=== PATIENT | male | born 1985 | race Caucasian/White ===

== ENCOUNTER 2019-01-18 11:36 | Inpatient (IN) | payer OTHER ==
[2019-01-18 14:57] VITALS: BMI 24.7
--- NOTE | 2019-01-18 16:57 | HP ---
CIWA Score Nausea/Vomitin-No Nausea/No Vomiting Muscle Tremors: 4-Moderate,w/Arms Extend Anxiety: 1-Mildly Anxious Agitation: 0-Normal Activity Paroxysmal Sweats: No Perspiration Orientation: 1-Uncertain about Date Tacttile Disturbances: 0-None Auditory Disturbances: 0-None Visual Disturbances: 0-None Headache: 0-None Present CIWA-Ar Total Score: 6 - Admission Criteria OASAS Guidelines: Admission for Medically Managed Detox: Requires at least one of the followin. CIWA greater than 12 2. Seizures within the past 24 hours 3. Delirium tremens within the past 24 hours 4. Hallucinations within the past 24 hours 5. Acute intervention needed for co occurring medical disorder 6. Acute intervention needed for co occurring psychiatric disorder 7. Severe withdrawal that cannot be handled at a lower level of care (continued vomiting, continued diarrhea, abnormal vital signs) requiring intravenous medication and/or fluids 8. Admission ROS S - [facility] Allergies/Adverse Reactions: Allergies Allergy/AdvReac Type Severity Reaction Status Date / Time No Known Allergies Allergy Verified 01/18/19 14:50 History of Present Illness: Search Terms: keila shetty, 1985 Search Date: 01/18/2019 04:44:16 PM This report was requested by: Lisbeth Kincaid | Reference #: [id number] There are no results for the search terms that you entered. pt here requesting detox from etoh use , reports 3 x 6-pk /day since 1 mo ago , prior to which he was sober x 2 years , first age of use 11 , heavily since 17 , reports multiple prior detox most recently @ [facility] did not complete , latest use yesterday , current symptoms as above . Pt is poor historian , falls asleep frequently during interview, awakened by verbal stimuli , falls asleep before answering questions . cannabis : denies tobacco : 2 ppd cocaine : " a lot " 2.5 bags IVDU in UE , needles from exchange , + sharing heroin : admits to use , cannot quantify 2/2 intoxication . MMTP - does not recall name of program , states current daily dose 80 mg . met/amp - denies oxy - denies fen- denies PMHX / PSHX - unable to obtain 2/2 intoxication . - Ebola screening Have you traveled outside of the country in the last 21 days: No (N) Have you had contact with anyone from an Ebola affected area: No Do you have a fever: No - Review of Systems Constitutional: No Symptoms Reported EENT: reports: Other (glasses) Respiratory: reports: No Symptoms reported Cardiac: reports: No Symptoms Reported GI: reports: No Symptoms Reported : reports: No Symptoms Reported Musculoskeletal: reports: No Symptoms Reported Integumentary: reports: See HPI Neuro: reports: No Symptoms reported Endocrine: reports: No Symptoms Reported Psychiatric: reports: Depressed, Disorientated, other (drowsy , intoxicated) Patient History - Smoking Cessation Smoking history: Current every day smoker Have you smoked in the past 12 months: Yes Hx Chewing Tobacco Use: No Initiated information on smoking cessation: No - Substances abused Alcohol Substance route: Oral Frequency: Daily Amount used: Beer- 3x 6 packs Age of first use: 18 Date of last use: 01/17/19 Cocaine Substance route: Injection Heroin Substance route: Injection Family Disease History - Family Disease History Family History: Unable to Obtain (pt drowsy , falls asleep frequently during interview) Admission Physical Exam [facility] - Vital Signs Vital Signs: Vital Signs - 24 hr 01/18/19 14:51 Temperature 97 F L Pulse Rate 60 Respiratory 16 Rate Blood Pressure 126/80 - Physical General Appearance: Yes: Disheveled, Intoxicated HEENTM: Yes: Hearing grossly Normal, Normocephalic, Normal Voice Respiratory: Yes: Chest Non-Tender, Lungs Clear, Normal Breath Sounds, No Respiratory Distress, No Accessory Muscle Use Neck: Yes: No masses,lesions,Nodules, Trachea in good position Cardiology: Yes: Regular Rhythm, Regular Rate, S1, S2 Abdominal: Yes: Non Tender, Soft Back: Yes: Normal Inspection Musculoskeletal: Yes: Gait Steady Extremities: Yes: Normal Range of Motion, Non-Tender, Tremors Neurological: Yes: Motor Strength 5/5, Respond to painful stimul, Other (drowsy , intoxicated) - Diagnostic (1) Opioid dependence on agonist therapy Current Visit: Yes Status: Acute (2) Nicotine dependence Current Visit: Yes Status: Acute Qualifiers: Nicotine product type: cigarettes (3) Cocaine dependence Current Visit: Yes Status: Chronic Qualifiers: Substance use status: uncomplicated Qualified Code(s): F14.20 - Cocaine dependence, uncomplicated (4) Alcohol use disorder Current Visit: Yes Status: Chronic Inpatient Rehab Admission - Rehab Decision to Admit Inpatient rehab admission?: No
[2019-01-18] MEDS ORDERED: BISMUTH SUBSALICYLATE 524 MG/30 ML UD PO PRN (17:25)
[2019-01-18] MEDS ORDERED: NICOTINE POLACRILEX 2 MG GUM BUC PRN (17:25)
[2019-01-18] MEDS ORDERED: ACETAMINOPHEN 325 MG TABLET (FP) PO PRN ×2 (17:25)
[2019-01-18] MEDS ORDERED: IBUPROFEN 400 MG TABLET (FP) PO PRN (17:25)
[2019-01-18] MEDS ORDERED: MAGNESIUM HYDROX 2400MG/30ML ORAL SUSPENSION 30 ML CUP PO PRN (17:25)
[2019-01-18] MEDS ORDERED: MAG HYDROX/AL HYDROX/SIMETH 30 ML UNIT-DOSE CUP PO PRN (17:25)
[2019-01-18] MEDS ORDERED: hydrOXYzine PAMOATE 25 MG CAPSULE (FP) PO PRN (17:25)
[2019-01-18] MEDS ORDERED: MAGNESIUM CITRATE 300 ML BOTTLE PO PRN (17:25)
[2019-01-18] MEDS ORDERED: MENTHOL/PHENOL 1 EACH UD MM PRN (17:25)
[2019-01-18] MEDS ORDERED: diazePAM 5 MG TABLET PO PRN (17:27)
[2019-01-18] MEDS: BACITRACIN/POLYMYXIN B SULFATE 15 GM TUBE TP SCH (22:23)
[2019-01-18] MEDS: diazePAM 5 MG TABLET PO SCH (22:23)
[2019-01-18] MEDS: THIAMINE HCL 100 MG TABLET (FP) PO SCH (22:24)
[2019-01-18] MEDS: MELATONIN 5 MG TABLETS PO PRN (22:26)
[2019-01-19] MEDS: diazePAM 5 MG TABLET PO SCH ×3 (05:49→21:48)
[2019-01-19] MEDS: BACITRACIN/POLYMYXIN B SULFATE 15 GM TUBE TP SCH ×2 (10:37→21:49)
[2019-01-19] MEDS: METHADONE HCL 40 MG DISPERSABLE TABLET PO SCH (10:37)
[2019-01-19] MEDS: PRENATAL VITAMINS W/ FOLIC ACID TABLET (FP) PO SCH (10:37)
--- NOTE | 2019-01-19 11:38 | PN ---
[facility] CIWA - CIWA Score Nausea/Vomitin-Mild Nausea/No Vomiting Muscle Tremors: 4-Moderate,w/Arms Extend Anxiety: 3 Agitation: 3 Paroxysmal Sweats: 2 Orientation: 1-Uncertain about Date Tacttile Disturbances: 0-None Auditory Disturbances: 0-None Visual Disturbances: 0-None Headache: 0-None Present CIWA-Ar Total Score: 14 S Progress Note (SOAP) Subjective: 33 years old male 1st patient [facility] admission was admitted on 01/18/19 for alcohol withdrawal sx management tolerate valium detox regimen well but feeling restlessness and anxiety prefers to stay in bed resting today limited conversation with staff refused left antecubital to be examined Objective: 01/19/19 11:41 Vital Signs Temperature 96.1 F L 01/19/19 09:11 Pulse Rate 85 01/19/19 09:11 Respiratory Rate 18 01/19/19 09:11 Blood Pressure 129/75 01/19/19 09:11 O2 Sat by Pulse Oximetry (%) 01/19/19 11:45 lab pending Assessment: 01/19/19 11:45 alcohol withdrawal sx alert but closing his eyes periodically "I am tired" response to verbal command Plan: continue valium detox regimen methadone program 80 mg po daily
[2019-01-19 12:28] LABS: HEMATOCRIT 43.7 % (35.4-49); HEMOGLOBIN 14.4 GM/dL (11.7-16.9); MCH 29.1 pg (25.7-33.7); MEAN CELL VOLUME 88.1 fl (80-96); MEAN PLT VOLUME 8.7 fl (7.5-11.1); PLATELET COUNT 170 K/MM3 (134-434); RBC 4.96 M/mm3 (4.00-5.60); RDW 13.7 % (11.9-15.9); WHITE BLOOD COUNT 5.4 K/mm3 (4.0-10.0)
[2019-01-19 12:31] LABS: ALBUMIN 3.4 g/dl (3.4-5.0); BILIRUBIN,TOTAL 0.4 mg/dL (0.2-1); BLOOD UREA NITROGEN 15.4 mg/dL (7-18); CALCIUM 9.2 mg/dL (8.5-10.1); CREATININE 0.8 mg/dL (0.55-1.3); POTASSIUM 3.7 mmol/L (3.5-5.1); TOT PROT 6.5 g/dl (6.4-8.2)
[2019-01-19] MEDS: THIAMINE HCL 100 MG TABLET (FP) PO SCH (21:48)
[2019-01-19] MEDS: MELATONIN 5 MG TABLETS PO PRN (21:48)
[2019-01-20] MEDS: diazePAM 5 MG TABLET PO SCH ×2 (05:32→17:13)
[2019-01-20] MEDS: METHADONE HCL 40 MG DISPERSABLE TABLET PO SCH (05:32)
[2019-01-20] MEDS: PRENATAL VITAMINS W/ FOLIC ACID TABLET (FP) PO SCH (10:41)
[2019-01-20] MEDS: BACITRACIN/POLYMYXIN B SULFATE 15 GM TUBE TP SCH ×2 (10:41→21:25)
--- NOTE | 2019-01-20 16:33 | PN ---
[facility] CIWA - CIWA Score Nausea/Vomitin-No Nausea/No Vomiting Muscle Tremors: 3 Anxiety: 4-Mod. Anxious/Guarded Agitation: 3 Paroxysmal Sweats: No Perspiration Orientation: 2-Disoriented Date<2 days Tacttile Disturbances: 1-Very Mild Itch/Numbness Auditory Disturbances: 0-None Visual Disturbances: 2-Mild Sensitivity Headache: 0-None Present CIWA-Ar Total Score: 15 S Progress Note (SOAP) Subjective: Fatigue, Tremors, Anxious. Objective: PATIENT A & O X 2 (UNCERTAIN ABOUT CURRENT DAY / DATE). PATIENT OBSERVED AMBULATING ON UNIT UNASSISTED. IN NO ACUTE DISTRESS. 01/20/19 16:29 Vital Signs Temperature 98.5 F 01/20/19 13:46 Pulse Rate 71 01/20/19 13:46 Respiratory Rate 18 01/20/19 13:46 Blood Pressure 120/73 01/20/19 13:46 O2 Sat by Pulse Oximetry (%) Laboratory Tests 01/19/19 01/19/19 01/19/19 08:30 08:30 08:30 WBC 5.4 RBC 4.96 Hgb 14.4 Hct 43.7 MCV 88.1 MCH 29.1 MCHC 33.0 RDW 13.7 Plt Count 170 MPV 8.7 Sodium 144 Potassium 3.7 Chloride 109 H Carbon Dioxide 31 Anion Gap 4 L BUN 15.4 Creatinine 0.8 Est GFR (CKD-EPI)AfAm 137.96 Est GFR (CKD-EPI)NonAf 119.03 Random Glucose 88 Calcium 9.2 Total Bilirubin 0.4 AST 133 H ALT 244 H Alkaline Phosphatase 71 Total Protein 6.5 Albumin 3.4 RPR Titer Nonreactive LABS NOTED. RESULTS OF DETOX ADMISSION QFT /TB TEST PENDING. 01/20/19 16:31 Assessment: 01/20/19 16:31 WITHDRAWAL SYMPTOMS. ELEVATED AST LEVEL. ELEVATED ALT LEVEL. Plan: CONTINUE DETOX. INCREASE DAILY PO WATER INTAKE. PATIENT SCHEDULED FOR D/C FROM DETOX UNIT TOMORROW, PENDING MEDICAL EVALUATION IN AM TOMORROW (WITHDRAWAL SYMPTOMS RELATIVELY SEVERE ON TODAY'S AM MEDICAL ASSESSMENT).
[2019-01-20] MEDS: THIAMINE HCL 100 MG TABLET (FP) PO SCH (21:23)
[2019-01-20] MEDS: MELATONIN 5 MG TABLETS PO PRN (21:24)
[2019-01-21] MEDS: METHADONE HCL 40 MG DISPERSABLE TABLET PO SCH (05:54)
[2019-01-21] MEDS ORDERED: diazePAM 5 MG TABLET PO ONE (06:00)
[2019-01-21 09:12] VITALS: BP 122/78; PULSE 75; TEMP 98.9
[2019-01-21] MEDS: PRENATAL VITAMINS W/ FOLIC ACID TABLET (FP) PO SCH (10:32)
[2019-01-21] MEDS: BACITRACIN/POLYMYXIN B SULFATE 15 GM TUBE TP SCH (10:32)
--- NOTE | 2019-01-21 13:29 | DS ---
[facility] Detox Discharge Summary Admission Date: 01/18/19 Discharge Date: 01/21/19 - History Present History: Alcohol Dependence, Cocaine Dependence, Opioid Dependence, MMTP Additional Comments: PATIENT GOING TO [facility] ([facility]) FOR AFTERCARE. PATIENT WAS DISCHARGED FROM DETOX UNIT TO BE TAKEN OVER TO REHAB UNIT IN STABLE MEDICAL CONDITION. Pertinent Past History: Nicotine Dependence, M.M.T.P., Elevated AST Level, Elevated ALT Level. - Physical Exam Results Vital Signs: Vital Signs Temperature 98.9 F 01/21/19 09:11 Pulse Rate 75 01/21/19 09:11 Respiratory Rate 18 01/21/19 09:11 Blood Pressure 122/78 01/21/19 09:11 O2 Sat by Pulse Oximetry (%) Pertinent Admission Physical Exam Findings: WITHDRAWAL SYMPTOMS. Laboratory Tests 01/19/19 01/19/19 01/19/19 08:30 08:30 08:30 WBC 5.4 RBC 4.96 Hgb 14.4 Hct 43.7 MCV 88.1 MCH 29.1 MCHC 33.0 RDW 13.7 Plt Count 170 MPV 8.7 Sodium 144 Potassium 3.7 Chloride 109 H Carbon Dioxide 31 Anion Gap 4 L BUN 15.4 Creatinine 0.8 Est GFR (CKD-EPI)AfAm 137.96 Est GFR (CKD-EPI)NonAf 119.03 Random Glucose 88 Calcium 9.2 Total Bilirubin 0.4 AST 133 H ALT 244 H Alkaline Phosphatase 71 Total Protein 6.5 Albumin 3.4 RPR Titer Nonreactive LABS NOTED. - Treatment Hospital Course: Detox Protocol Followed, Detoxed Safely, Responded well, Discharged Condition Good, Rehab Referral Accepted Patient has Accepted a Rehab Referral to: [facility] ([place], [place]). - Medication Discharge Medications: Ambulatory Orders NK [No Known Home Medication] 01/18/19 - Diagnosis (1) Elevated alanine aminotransferase (ALT) level Current Visit: Yes Status: Acute (2) Elevated aspartate aminotransferase level Current Visit: Yes Status: Acute (3) Nicotine dependence Current Visit: Yes Status: Acute Qualifiers: Nicotine product type: cigarettes Substance use status: uncomplicated Qualified Code(s): F17.210 - Nicotine dependence, cigarettes, uncomplicated (4) Opioid dependence on agonist therapy Current Visit: Yes Status: Acute (5) Alcohol use disorder Current Visit: Yes Status: Chronic (6) Cocaine dependence Current Visit: Yes Status: Chronic Qualifiers: Substance use status: uncomplicated Qualified Code(s): F14.20 - Cocaine dependence, uncomplicated - AMA Did Patient Leave Against Medical Advice: No [facility] CIWA - CIWA Score Nausea/Vomitin-No Nausea/No Vomiting Muscle Tremors: None Anxiety: 3 Agitation: 0-Normal Activity Paroxysmal Sweats: No Perspiration Orientation: 0-Oriented Tacttile Disturbances: 1-Very Mild Itch/Numbness Auditory Disturbances: 0-None Visual Disturbances: 1-Very Mild Sensitivity Headache: 0-None Present CIWA-Ar Total Score: 5
== END 2019-01-21 13:24 | disposition other institution (70) | DRG 773 ==
LOC: YASAS 11:36 → Y3N 18:39
PROVIDERS: ADMIT Surgery; ATTEND Surgery
PROC: HZ2ZZZZ Detoxification Services for Substance Abuse Treatment (ICD-10-PCS; principal; 2019-01-18)
DX: F10.230 Alcohol dependence with withdrawal, uncomplicated (principal); F11.20 Opioid dependence, uncomplicated; F14.20 Cocaine dependence, uncomplicated; F17.210 Nicotine dependence, cigarettes, uncomplicated; R74.0 Nonspecific elevation of levels of transaminase and lactic acid dehydrogenase [LDH]
CPT/HCPCS: 36415; 80053; 85027; 86480; 86593

== ENCOUNTER 2019-01-21 13:28 | Inpatient (IN) | payer OTHER ==
[2019-01-21] MEDS ORDERED: LOPERAMIDE HCL 2 MG CAPSULE PO PRN (13:31)
[2019-01-21] MEDS ORDERED: NICOTINE POLACRILEX 2 MG GUM BUC PRN (13:31)
[2019-01-21] MEDS ORDERED: IBUPROFEN 400 MG TABLET (FP) PO PRN (13:31)
[2019-01-21] MEDS ORDERED: P-EPHED 60MG/TRIPROLIDI 2.5MG TABLET PO PRN (13:31)
[2019-01-21] MEDS ORDERED: MENTHOL/PHENOL 1 EACH UD MM PRN (13:31)
[2019-01-21] MEDS ORDERED: MAGNESIUM CITRATE 300 ML BOTTLE PO PRN (13:31)
[2019-01-21] MEDS ORDERED: MAGNESIUM HYDROX 2400MG/30ML ORAL SUSPENSION 30 ML CUP PO PRN (13:31)
[2019-01-21] MEDS ORDERED: guaiFENesin 200 MG/10 ML 10 ML UNIT-DOSE CUPS PO PRN (13:31)
--- NOTE | 2019-01-21 14:02 | HP ---
[facility]CHULE[facility] Rehab Assess/Revision - Admission History Admitted to Rehab from[facility] Date of Admission to Rehab: 01/21/2019 - Vital signs Vital Signs: NOTED; STABLE. - Findings Detox History & Physical reviewed: Yes Concur with findings: Yes Comments/Additional Findings: PATIENT'S MEDICAL / MEDICATION HISTORY REVIEWED PRIOR TO DISCHARGE FROM DETOX UNIT. PATIENT WAS DISCHARGED FROM DETOX UNIT TO BE TAKEN OVER TO REHAB UNIT IN STABLE MEDICAL CONDITION. RESULT OF DETOX ADMISSION QFT / TB TEST PENDING AT TIME OF DISCHARGE FROM DETOX UNIT, WILL BE NOTED ON REHAB UNIT ONCE RESULT IS AVAILABLE. Inpatient Rehab Admission - Rehab Decision to Admit Inpatient rehab admission?: Yes - Initial Determination Are CD services needed?: Yes Free of communicable disease: Yes Not in need of hospitalization: Yes - Rehab Admission Criteria Previous failed treatment: Yes Poor recovery environment: Yes Comorbidities: Yes Lacks judgement: Yes Patient is meeting Inpatient Rehab admission criteria:: Yes
[2019-01-21] MEDS: MAG HYDROX/AL HYDROX/SIMETH 30 ML UNIT-DOSE CUP PO PRN (15:29)
[2019-01-21] MEDS ORDERED: MELATONIN 5 MG TABLETS PO PRN (22:00)
[2019-01-21] MEDS ORDERED: THIAMINE HCL 100 MG TABLET (FP) PO SCH (22:00)
[2019-01-22] MEDS ORDERED: METHADONE HCL 40 MG DISPERSABLE TABLET PO SCH (06:00)
[2019-01-22 07:24] VITALS: BP 123/74; PULSE 71; TEMP 98.2
[2019-01-22] MEDS: MAG HYDROX/AL HYDROX/SIMETH 30 ML UNIT-DOSE CUP PO PRN (09:54)
[2019-01-22] MEDS ORDERED: PRENATAL VITAMINS W/ FOLIC ACID TABLET (FP) PO SCH (10:00)
[2019-01-22] MEDS ORDERED: BACITRACIN/POLYMYXIN B SULFATE 15 GM TUBE TP SCH (10:00)
--- NOTE | 2019-01-22 15:40 | PN ---
[facility] Progress Note Note: Rehab Discharge Summary Patient Name: LUIS GARCÍA Date of : 89 Patient Status: Inpatient Attending Provider: Lisbeth Kincaid Date: 01/22/19 15:37 Initialization Date: 01/22/19 15:37 Rehab Discharge Summary Admission Date: 01/21/19 Discharge Date: 01/22/19 - History Present History: Alcohol Dependence, Cannabis Dependence, Cocaine Dependence, Opioid Dependence Pertinent Past History: Denies - Physical Exam Results Vital Signs: Vital Signs Temperature 98.2 F 01/22/19 07:24 Pulse Rate 71 01/22/19 07:24 Respiratory Rate 18 01/22/19 07:24 Blood Pressure 123/74 01/22/19 07:24 O2 Sat by Pulse Oximetry (%) - Medication Discharge Medications: Ambulatory Orders NK [No Known Home Medication] 01/18/19 - Diagnosis (1) Nicotine dependence Current Visit: No Status: Acute Qualifiers: Nicotine product type: cigarettes Substance use status: uncomplicated Qualified Code(s): F17.210 - Nicotine dependence, cigarettes, uncomplicated (2) Opioid dependence on agonist therapy Current Visit: No Status: Acute (3) Alcohol use disorder Current Visit: No Status: Chronic Patient discharged AMA to go to another facility
== END 2019-01-22 15:48 | disposition left against medical advice (07) | DRG 770 ==
LOC: YASAS 13:28 → Y5N 13:29
PROVIDERS: ADMIT Neuromusculoskeletal Medicine & OMM; ATTEND Neuromusculoskeletal Medicine & OMM
PROC: HZ42ZZZ Group Counseling for Substance Abuse Treatment, Cognitive-Behavioral (ICD-10-PCS; principal; 2019-01-21)
DX: F10.20 Alcohol dependence, uncomplicated (principal); F11.20 Opioid dependence, uncomplicated; F14.20 Cocaine dependence, uncomplicated; F17.210 Nicotine dependence, cigarettes, uncomplicated

== ENCOUNTER 2019-02-12 08:26 | Inpatient (IN) | payer OTHER ==
[2019-02-12 08:50] VITALS: BMI 23.6
--- NOTE | 2019-02-12 09:56 | HP ---
CIWA Score Nausea/Vomitin Muscle Tremors: 3 Anxiety: 4-Mod. Anxious/Guarded Agitation: 2 Paroxysmal Sweats: 1-Minimal Palms Moist Orientation: 1-Uncertain about Date Tacttile Disturbances: 1-Very Mild Itch/Numbness Auditory Disturbances: 0-None Visual Disturbances: 0-None Headache: 2-Mild CIWA-Ar Total Score: 16 - Admission Criteria OASAS Guidelines: Admission for Medically Managed Detox: Requires at least one of the followin. CIWA greater than 12 2. Seizures within the past 24 hours 3. Delirium tremens within the past 24 hours 4. Hallucinations within the past 24 hours 5. Acute intervention needed for co occurring medical disorder 6. Acute intervention needed for co occurring psychiatric disorder 7. Severe withdrawal that cannot be handled at a lower level of care (continued vomiting, continued diarrhea, abnormal vital signs) requiring intravenous medication and/or fluids 8. Patient presents the following: CIWA greater than 12 Admission Criteria Met: Admission criteria met Admission ROS [facility] - HPI Chief Complaint: I know it's going to get worse, I know I need to stay and get help, I'm done, I' m just wasting my life Allergies/Adverse Reactions: Allergies Allergy/AdvReac Type Severity Reaction Status Date / Time No Known Allergies Allergy Verified 02/12/19 08:45 History of Present Illness: 33 yo gentleman here for detox from alcohol. Patient was previously here for detox 01/18-01/21 then sent to rehab here where he transferred to [facility] - however when he went there they had no beds so was on the streets - returned to using - did go back to his methadone program ([facility]) - he is not sure when but it was verified that he was medicated (80mg) on 02/05 and given one take-home for . Patient states he continued drinking and using cocaine by injection and then went to [facility] where he stayed for two days for detox but left again before completing treatment (he thinks 02/09-02/10) to 'get high' because his check was available. He then went to [place] [facility] yesterday to go back for treatment. He does have a history of alcohol related seizure, black outs and of note is very elevated transaminase levels on his admission here 01/18/19. He is homeless and having issues related to seeing his daughter due to his drug and alcohol use. Noted urine tox + bzo - states it is from detox at [facility] was given librium. He was given 80mg methadone at [facility] - this was verified by KAUSHAL Acosta who called [facility] - they dosed him on 02/10/19. Patient lost almost 10lbs since leaving here a month ago. Patient reports living in [place] for ten years - he was using pills and then heroin while in [place] as well as drinking and went on a methadone program in [place] about a year prior to coming here in May 2018 after his grandmother kicked him out for ongoing drug use. Exam Limitations: No Limitations - Ebola screening Have you traveled outside of the country in the last 21 days: No (N) Have you had contact with anyone from an Ebola affected area: No Do you have a fever: No - Review of Systems Constitutional: Chills, Loss of Appetite, Malaise, Changes in sleep, Weakness, Unintentional Wgt. Loss EENT: reports: Blurred Vision Respiratory: reports: No Symptoms reported Cardiac: reports: No Symptoms Reported GI: reports: Nausea, Poor Appetite, Abdominal cramping : reports: Frequency Musculoskeletal: reports: Back Pain, Joint Pain, Muscle Pain, Muscle Weakness Integumentary: reports: No Symptoms Reported Neuro: reports: Headache, Numbness, Tremors Endocrine: reports: No Symptoms Reported Hematology: reports: No Symptoms Reported Psychiatric: reports: Judgement Intact, Mood/Affect Appropiate, Anxious Other Systems: Reviewed and Negative Patient History - Patient Medical History Hx Asthma: No Hx Chronic Obstructive Pulmonary Disease (COPD): No Hx Cancer: No Hx Cardiac Disorders: No Hx Congestive Heart Failure: No Hx Hypertension: No Hx Hypercholesterolemia: No Hx Pacemaker: No Hx Seizures: Yes (alcohol related about 2017) Hx Diabetes: No Hx Gastrointestinal Disorders: Yes (GERD; history of cholecystitis) Hx Liver Disease: Yes (elevated LFTs due to alcohol) Hx Genitourinary Disorders: No Hx Sexually Transmitted Disorders: No Hx Renal Disease (ESRD): No Hx Thyroid Disease: No Hx Human Immunodeficiency Virus (HIV): No Hx Hepatitis C: No Hx Depression: Yes (no meds, never hospitalized) Hx Suicide Attempt: No Hx Bipolar Disorder: No Hx Schizophrenia: No - Patient Surgical History Past Surgical History: No Hx Neurologic Surgery: No Hx Cataract Extraction: No Hx Cardiac Surgery: No Hx Lung Surgery: No Hx Breast Surgery: No Hx Breast Biopsy: No Hx Abdominal Surgery: No Hx Appendectomy: No Hx Cholecystectomy: No Hx Genitourinary Surgery: No Hx Section: No Hx Orthopedic Surgery: No Anesthesia Reaction: No - PPD History Previous Implant?: Yes Documented Results: Negative w/o proof Implanted On Prior [facility] Admission?: Yes Results: quantiferon neg PPD to be Administered?: No - Reproductive History Patient is a Female of Child Bearing Age (11 -55 yrs old): No - Smoking Cessation Smoking history: Current every day smoker Have you smoked in the past 12 months: Yes Aproximately how many cigarettes per day: 20 Cigars Per Day: 0 Hx Chewing Tobacco Use: No Initiated information on smoking cessation: Yes 'Breaking Loose' booklet given: 02/12/19 (give on floor) - Substances abused Alcohol Substance route: Oral Frequency: Daily Amount used: Beer- 3x 6 packs, 1 pint lvodka Age of first use: 18 Date of last use: 02/11/19 Cocaine Substance route: Injection Frequency: Daily Amount used: 1 GRAM Age of first use: 20 Date of last use: 02/11/19 Heroin Substance route: Injection Frequency: 1-2 times per week Amount used: 6 bags Age of first use: 19 Date of last use: 02/11/19 Admission Physical Exam S - Vital Signs Vital Signs: Vital Signs - 24 hr 02/12/19 08:46 Temperature 97.9 F Pulse Rate 70 Respiratory 20 Rate Blood Pressure 115/71 - Physical General Appearance: Yes: Nourished, Appropriately Dressed, Moderate Distress, Tremorous, Anxious HEENTM: Yes: EOMI, Hearing grossly Normal, Normocephalic, Normal Voice, Pharynx Normal Respiratory: Yes: Normal Breath Sounds, No Respiratory Distress Neck: Yes: No masses,lesions,Nodules, Supple Breast: Yes: Breast Exam Deferred Cardiology: Yes: Regular Rhythm, Regular Rate Abdominal: Yes: Soft Genitourinary: Yes: Frequency Back: Yes: Normal Inspection Musculoskeletal: Yes: full range of Motion, Gait Steady, Back pain, Muscle Pain Extremities: Yes: Tremors, Pedal Edema (mild ankle edema) Neurological: Yes: Fully Oriented, Alert, Normal Mood/Affect, Normal Response, Numbness (sometimes fingers and toes get numb) Integumentary: Yes: Normal Color, Warm, Track Phillips (left antecubital fossa with tracks - no abscess - elevated purplish scarring noted) Lymphatic: Yes: Within Normal Limits - Diagnostic (1) Alcohol use disorder Current Visit: Yes Status: Chronic (2) Cocaine dependence Current Visit: Yes Status: Chronic Qualifiers: Substance use status: uncomplicated Qualified Code(s): F14.20 - Cocaine dependence, uncomplicated (3) Nicotine dependence Current Visit: Yes Status: Acute Qualifiers: Nicotine product type: cigarettes Substance use status: uncomplicated Qualified Code(s): F17.210 - Nicotine dependence, cigarettes, uncomplicated (4) Opioid dependence on agonist therapy Current Visit: Yes Status: Chronic Comment: [facility] methadone program (5) Elevated alanine aminotransferase (ALT) level Current Visit: Yes Status: Acute (6) Elevated aspartate aminotransferase level Current Visit: Yes Status: Acute (7) GERD (gastroesophageal reflux disease) Current Visit: Yes Status: Chronic Qualifiers: Esophagitis presence: without esophagitis Qualified Code(s): K21.9 - Gastro -esophageal reflux disease without esophagitis (8) History of seizure Current Visit: Yes Status: Chronic Cleared for Admission S - Detox or Rehab [facility] Level of Care: Medically Managed Detox Regimen/Protocol: Valium Breathalyzer - Breathalyzer Breathalyzer: 0 Urine Drug Screen - Test Device Lot number: [id number] Expiration date: 10/15/20 - Control Is test valid?: Yes - Results Drug screen NEGATIVE: Yes Urine drug screen results: EDGARDO-Cocaine, FEN-Fentanyl, MOP-Opiates, MTD-Methadone , BZO-Benzodiazepines Inpatient Rehab Admission - Rehab Decision to Admit Inpatient rehab admission?: No
[2019-02-12] MEDS ORDERED: MAGNESIUM CITRATE 300 ML BOTTLE PO PRN (10:06)
[2019-02-12] MEDS ORDERED: NICOTINE POLACRILEX 4 MG GUM BUC PRN (10:06)
[2019-02-12] MEDS ORDERED: hydrOXYzine PAMOATE 25 MG CAPSULE (FP) PO PRN (10:06)
[2019-02-12] MEDS ORDERED: diazePAM 5 MG TABLET PO ONE (10:06)
[2019-02-12] MEDS ORDERED: diazePAM 5 MG TABLET PO PRN (10:06)
[2019-02-12] MEDS ORDERED: MAGNESIUM HYDROX 2400MG/30ML ORAL SUSPENSION 30 ML CUP PO PRN (10:06)
[2019-02-12] MEDS ORDERED: METHOCARBAMOL 500 MG TABLET PO PRN (10:06)
[2019-02-12] MEDS ORDERED: MENTHOL/PHENOL 1 EACH UD MM PRN (10:06)
[2019-02-12] MEDS ORDERED: MAG HYDROX/AL HYDROX/SIMETH 30 ML UNIT-DOSE CUP PO PRN (10:06)
[2019-02-12] MEDS ORDERED: BISMUTH SUBSALICYLATE 524 MG/30 ML UD PO PRN (10:06)
[2019-02-12] MEDS: METHADONE HCL 40 MG DISPERSABLE TABLET PO SCH (12:09)
[2019-02-12] MEDS: diazePAM 5 MG TABLET PO SCH ×2 (13:17→22:09)
--- NOTE | 2019-02-12 13:51 | CONSULT ---
[facility] Psychiatric Consult - Data Date of interview: 02/12/19 Admission source: [facility] Identifying data: Patient is approached twice at bedside for the psychiatric interview. Mr Chairez states, on both occasions, that he is tired and not willing to talk to psychiatrists. Nursing staff is informed of situation.
[2019-02-12 19:37] LABS: HEMATOCRIT 45.9 % (35.4-49); MCH 28.7 pg (25.7-33.7); MCHC 32.7 g/dl (32.0-35.9); MEAN CELL VOLUME 87.8 fl (80-96); MEAN PLT VOLUME 8.7 fl (7.5-11.1); PLATELET COUNT 207 K/MM3 (134-434); RBC 5.22 M/mm3 (4.00-5.60); RDW 14.2 % (11.9-15.9); WHITE BLOOD COUNT 9.3 K/mm3 (4.0-10.0)
[2019-02-12 19:49] LABS: ALBUMIN 4.3 g/dl (3.4-5.0); BILIRUBIN,TOTAL 0.6 mg/dL (0.2-1); BLOOD UREA NITROGEN 19.4 mg/dL (7-18); CALCIUM 9.4 mg/dL (8.5-10.1); CREATININE 0.9 mg/dL (0.55-1.3); POTASSIUM 3.6 mmol/L (3.5-5.1); TOT PROT 7.6 g/dl (6.4-8.2)
[2019-02-12] MEDS: THIAMINE HCL 100 MG TABLET (FP) PO SCH (22:09)
[2019-02-12] MEDS: MELATONIN 5 MG TABLETS PO PRN (22:10)
[2019-02-13] MEDS ORDERED: METHADONE HCL 10 MG TABLET PO ONE (06:00)
[2019-02-13] MEDS: diazePAM 5 MG TABLET PO SCH ×3 (06:06→21:54)
[2019-02-13] MEDS: METHADONE HCL 40 MG DISPERSABLE TABLET PO SCH (06:06)
[2019-02-13] MEDS: PRENATAL VITAMINS W/ FOLIC ACID TABLET (FP) PO SCH (10:39)
--- NOTE | 2019-02-13 10:52 | PN ---
[facility] CIWA - CIWA Score Nausea/Vomitin-Mild Nausea/No Vomiting Muscle Tremors: 4-Moderate,w/Arms Extend Anxiety: 4-Mod. Anxious/Guarded Agitation: 2 Paroxysmal Sweats: 2 Orientation: 0-Oriented Tacttile Disturbances: 0-None Auditory Disturbances: 0-None Visual Disturbances: 0-None Headache: 1-Very Mild CIWA-Ar Total Score: 14 [facility] Progress Note (SOAP) Subjective: doing well with valium detox regimen received methadone 80 mg po today ambulating on hallway well rested refused to be seen by psychiatrist patient denies suicidal ideation appeared stable calm and cooperative Objective: 02/13/19 10:52 Vital Signs Temperature 97.7 F 02/13/19 09:38 Pulse Rate 56 L 02/13/19 09:38 Respiratory Rate 18 02/13/19 09:38 Blood Pressure 105/66 02/13/19 09:38 O2 Sat by Pulse Oximetry (%) Laboratory Last Values WBC 9.3 K/mm3 (4.0-10.0) 02/12/19 10:38 RBC 5.22 M/mm3 (4.00-5.60) 02/12/19 10:38 Hgb 15.0 GM/dL (11.7-16.9) 02/12/19 10:38 Hct 45.9 % (35.4-49) 02/12/19 10:38 MCV 87.8 fl (80-96) 02/12/19 10:38 MCH 28.7 pg (25.7-33.7) 02/12/19 10:38 MCHC 32.7 g/dl (32.0-35.9) 02/12/19 10:38 RDW 14.2 % (11.9-15.9) 02/12/19 10:38 Plt Count 207 K/MM3 (134-434) D 02/12/19 10:38 MPV 8.7 fl (7.5-11.1) 02/12/19 10:38 Sodium 141 mmol/L (136-145) 02/12/19 10:38 Potassium 3.6 mmol/L (3.5-5.1) 02/12/19 10:38 Chloride 104 mmol/L (98-107) 02/12/19 10:38 Carbon Dioxide 32 mmol/L (21-32) 02/12/19 10:38 Anion Gap 5 MMOL/L (8-16) L 02/12/19 10:38 BUN 19.4 mg/dL (7-18) H 02/12/19 10:38 Creatinine 0.9 mg/dL (0.55-1.3) 02/12/19 10:38 Est GFR (CKD-EPI)AfAm 131.44 02/12/19 10:38 Est GFR (CKD-EPI)NonAf 113.41 02/12/19 10:38 Random Glucose 87 mg/dL (74-106) 02/12/19 10:38 Calcium 9.4 mg/dL (8.5-10.1) 02/12/19 10:38 Total Bilirubin 0.6 mg/dL (0.2-1) 02/12/19 10:38 AST 77 U/L (15-37) H 02/12/19 10:38 ALT 208 U/L (13-61) H 02/12/19 10:38 Alkaline Phosphatase 81 U/L (45-117) 02/12/19 10:38 Total Protein 7.6 g/dl (6.4-8.2) 02/12/19 10:38 Albumin 4.3 g/dl (3.4-5.0) 02/12/19 10:38 RPR Titer Nonreactive (NONREACTIVE) 02/12/19 10:38 lab noted Assessment: 02/13/19 10:52 alcohol withdrawal sx Plan: continue valium detox regimen
[2019-02-13] MEDS ORDERED: FLU VACCINE QUAD 60 MCG/0.5 ML (MDV 19-20) IM ONE (12:00)
[2019-02-13] MEDS: THIAMINE HCL 100 MG TABLET (FP) PO SCH (21:55)
[2019-02-13] MEDS: MELATONIN 5 MG TABLETS PO PRN (21:55)
[2019-02-14] MEDS: METHADONE HCL 40 MG DISPERSABLE TABLET PO SCH (05:57)
[2019-02-14] MEDS: diazePAM 5 MG TABLET PO SCH ×2 (05:57→17:37)
[2019-02-14] MEDS: PRENATAL VITAMINS W/ FOLIC ACID TABLET (FP) PO SCH (10:32)
--- NOTE | 2019-02-14 10:38 | PN ---
[facility] CIWA - CIWA Score Nausea/Vomitin-Mild Nausea/No Vomiting Muscle Tremors: 2 Anxiety: 3 Agitation: 2 Paroxysmal Sweats: 1-Minimal Palms Moist Orientation: 0-Oriented Tacttile Disturbances: 0-None Auditory Disturbances: 0-None Visual Disturbances: 0-None Headache: 1-Very Mild CIWA-Ar Total Score: 10 [facility] Progress Note (SOAP) Subjective: doing well with valium detox regimen received methadone 80 mg po today less anxious mild tremor patient prefers return to methadone program for behavior therapy and psychosocial therapy as alcohol recovery Objective: 02/14/19 10:37 Vital Signs Temperature 98.9 F 02/14/19 09:15 Pulse Rate 71 02/14/19 09:15 Respiratory Rate 16 02/14/19 09:15 Blood Pressure 103/67 02/14/19 09:15 O2 Sat by Pulse Oximetry (%) Laboratory Last Values WBC 9.3 K/mm3 (4.0-10.0) 02/12/19 10:38 RBC 5.22 M/mm3 (4.00-5.60) 02/12/19 10:38 Hgb 15.0 GM/dL (11.7-16.9) 02/12/19 10:38 Hct 45.9 % (35.4-49) 02/12/19 10:38 MCV 87.8 fl (80-96) 02/12/19 10:38 MCH 28.7 pg (25.7-33.7) 02/12/19 10:38 MCHC 32.7 g/dl (32.0-35.9) 02/12/19 10:38 RDW 14.2 % (11.9-15.9) 02/12/19 10:38 Plt Count 207 K/MM3 (134-434) D 02/12/19 10:38 MPV 8.7 fl (7.5-11.1) 02/12/19 10:38 Sodium 141 mmol/L (136-145) 02/12/19 10:38 Potassium 3.6 mmol/L (3.5-5.1) 02/12/19 10:38 Chloride 104 mmol/L (98-107) 02/12/19 10:38 Carbon Dioxide 32 mmol/L (21-32) 02/12/19 10:38 Anion Gap 5 MMOL/L (8-16) L 02/12/19 10:38 BUN 19.4 mg/dL (7-18) H 02/12/19 10:38 Creatinine 0.9 mg/dL (0.55-1.3) 02/12/19 10:38 Est GFR (CKD-EPI)AfAm 131.44 02/12/19 10:38 Est GFR (CKD-EPI)NonAf 113.41 02/12/19 10:38 Random Glucose 87 mg/dL (74-106) 02/12/19 10:38 Calcium 9.4 mg/dL (8.5-10.1) 02/12/19 10:38 Total Bilirubin 0.6 mg/dL (0.2-1) 02/12/19 10:38 AST 77 U/L (15-37) H 02/12/19 10:38 ALT 208 U/L (13-61) H 02/12/19 10:38 Alkaline Phosphatase 81 U/L (45-117) 02/12/19 10:38 Total Protein 7.6 g/dl (6.4-8.2) 02/12/19 10:38 Albumin 4.3 g/dl (3.4-5.0) 02/12/19 10:38 RPR Titer Nonreactive (NONREACTIVE) 02/12/19 10:38 HIV 1&2 Antibody Screen Negative 02/13/19 05:55 HIV P24 Antigen Negative 02/13/19 05:55 lab noted Assessment: 02/14/19 10:38 alcohol withdrawal sx Plan: continue valium detox regimen
[2019-02-14 17:38] VITALS: BP 108/64; PULSE 68; TEMP 97.6
--- NOTE | 2019-02-14 18:40 | PN ---
[facility] Progress Note Note: Alert and oriented. Gait steady. Patient states feeling better and withdrawal symptoms are some anxiety. CIWA: Anxiety = 2. Agitations = 2 Total score = 4 States wants to leave today instead in am. States will return to [facility] in am and do counseling and groups there. 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 Vital Signs - 24 hr 02/14/19 02/14/19 02/14/19 03:30 06:26 09:15 Temperature 97.6 F 98.9 F Pulse Rate 58 L 71 Respiratory 18 18 16 Rate Blood Pressure 97/59 L 103/67 02/14/19 02/14/19 13:14 17:37 Temperature 98.3 F 97.6 F Pulse Rate 71 68 Respiratory 18 16 Rate Blood Pressure 107/62 108/64
--- NOTE | 2019-02-14 18:41 | DS ---
[facility] Detox Discharge Summary Admission Date: 02/12/19 Discharge Date: 02/14/19 - History Present History: Alcohol Dependence, MMTP Additional Comments: Patient c/o alcohol and opioid withdrawal symptoms. Pertinent Past History: Patient on MMTP but missed some days. Wishes to remain on MM. - Physical Exam Results Vital Signs: Vital Signs Temperature 97.6 F 02/14/19 17:37 Pulse Rate 68 02/14/19 17:37 Respiratory Rate 16 02/14/19 17:37 Blood Pressure 108/64 02/14/19 17:37 O2 Sat by Pulse Oximetry (%) Pertinent Admission Physical Exam Findings: Patient admitted w/ alcohol and opioid withdrawal symptoms. Lab Results WBC 9.3 K/mm3 (4.0-10.0) 02/12/19 10:38 RBC 5.22 M/mm3 (4.00-5.60) 02/12/19 10:38 Hgb 15.0 GM/dL (11.7-16.9) 02/12/19 10:38 Hct 45.9 % (35.4-49) 02/12/19 10:38 MCV 87.8 fl (80-96) 02/12/19 10:38 MCHC 32.7 g/dl (32.0-35.9) 02/12/19 10:38 RDW 14.2 % (11.9-15.9) 02/12/19 10:38 Plt Count 207 K/MM3 (134-434) D 02/12/19 10:38 Sodium 141 mmol/L (136-145) 02/12/19 10:38 Potassium 3.6 mmol/L (3.5-5.1) 02/12/19 10:38 Chloride 104 mmol/L (98-107) 02/12/19 10:38 Carbon Dioxide 32 mmol/L (21-32) 02/12/19 10:38 Anion Gap 5 MMOL/L (8-16) L 02/12/19 10:38 BUN 19.4 mg/dL (7-18) H 02/12/19 10:38 Creatinine 0.9 mg/dL (0.55-1.3) 02/12/19 10:38 Random Glucose 87 mg/dL (74-106) 02/12/19 10:38 Calcium 9.4 mg/dL (8.5-10.1) 02/12/19 10:38 Labs reviewed. Patient tolerated alcohol detox ands stabilized on methadone. - Treatment Hospital Course: Detox Protocol Followed, Responded well, Discharged Condition Good (Patient declined nicotine patch and gum. Patient states has a Narcan Kit at home.) - Medication Discharge Medications: Ambulatory Orders Methadone [Dolophine -] 80 mg PO DAILY 02/12/19 - Diagnosis (1) Alcohol dependence with uncomplicated withdrawal Status: Acute (2) Nicotine dependence Status: Chronic Qualifiers: Nicotine product type: cigarettes Substance use status: uncomplicated Qualified Code(s): F17.210 - Nicotine dependence, cigarettes, uncomplicated (3) GERD (gastroesophageal reflux disease) Status: Chronic Qualifiers: Esophagitis presence: without esophagitis Qualified Code(s): K21.9 - Gastro -esophageal reflux disease without esophagitis (4) Opioid dependence on agonist therapy Status: Chronic - AMA Did Patient Leave Against Medical Advice: No
[2019-02-15] MEDS ORDERED: diazePAM 5 MG TABLET PO ONE (06:00)
== END 2019-02-14 19:03 | disposition home or self-care (01) | DRG 773 ==
LOC: YASAS 08:26 → Y3N 10:47
PROVIDERS: ADMIT Surgery; ATTEND Surgery
PROC: HZ2ZZZZ Detoxification Services for Substance Abuse Treatment (ICD-10-PCS; principal; 2019-02-12)
DX: F10.230 Alcohol dependence with withdrawal, uncomplicated (principal); F11.20 Opioid dependence, uncomplicated; F14.20 Cocaine dependence, uncomplicated; F17.210 Nicotine dependence, cigarettes, uncomplicated; K21.9 Gastro-esophageal reflux disease without esophagitis; R74.0 Nonspecific elevation of levels of transaminase and lactic acid dehydrogenase [LDH]; Z86.69 Personal history of other diseases of the nervous system and sense organs; Z59.0 Homelessness
CPT/HCPCS: 36415; 80053; 85027; 86593; 87389; G0008; Q2036